=== PATIENT | female | born 2000 | race Caucasian/White ===

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

== ENCOUNTER 2022-08-15 09:41 | Emergency (ER) | payer MEDICAID ==
[~2022-08-15] VITALS: Ht 165.1 cm; Wt 82.0 kg
[~2022-08-15 09:41] MED LIST: METR-167 MT
[2022-08-15 10:06] VITALS: BP 127/76
[2022-08-15] MEDS ORDERED: FLUORESCEIN SODIUM 1MG/STRIP LEFTEYE SCH (12:00)
[2022-08-15] MEDS ORDERED: TETRACAINE 0.5% OPHTH DROPS 4ML RIGHTEYE SCH (12:00)
[2022-08-15] MEDS ORDERED: IBUPROFEN 600MG TABLET PO SCH (12:00)
[2022-08-15] MEDS ORDERED: BALANCED SALT IRRIG SOLN 15ML IR SCH (12:00)
[2022-08-15] MEDS ORDERED: CIPR5DRO RIGHTEYE (14:43)
[2022-08-15] MEDS ORDERED: NAPR-681 PO (14:43)
== END 2022-08-15 15:30 | disposition home or self-care (01) ==
LOC: ER 09:41
DX: S00.11XA Contusion of right eyelid and periocular area, initial encounter (principal); W22.8XXA Striking against or struck by other objects, initial encounter; Y93.9 Activity, unspecified; Y92.9 Unspecified place or not applicable
CPT/HCPCS: 70486; 81025; 99284

== ENCOUNTER 2024-08-08 11:13 | Emergency (ER) | payer MEDICAID ==
[~2024-08-08] VITALS: Ht 167.6 cm; Wt 86.2 kg
[~2024-08-08 11:13] MED LIST changes: +CIPR5DRO RIGHTEYE; +NAPR-681 PO
[2024-08-08 11:18] VITALS: BP 156/92; PULSE 84; RESP 18; TEMP 37; O2SAT 100
[2024-08-08 11:21] VITALS: O2SAT 100
== END 2024-08-08 14:03 | disposition home or self-care (01) ==
LOC: ER 11:13
DX: M25.531 Pain in right wrist (principal); Z79.899 Other long term (current) drug therapy; J45.909 Unspecified asthma, uncomplicated; V89.2XXA Person injured in unspecified motor-vehicle accident, traffic, initial encounter; Y93.89 Activity, other specified; Y92.89 Other specified places as the place of occurrence of the external cause; Y99.8 Other external cause status
CPT/HCPCS: 73100; 99283